=== PATIENT | male | born 1950 | race Caucasian/White ===

== ENCOUNTER → 2017-11-19 | Outpatient (CLI) | payer MEDICARE ==
--- NOTE | 2017-11-19 10:04 | CTL ---
EXAMINATION TYPE: CT Low Dose Lung DATE OF EXAM ORDERED: 11/19/2017 HISTORY: Long-term tobacco use. Lung cancer screening CT DLP: [address] CTDI: 2.83 mGy Automated exposure control for dose reduction was used. SCREENING VISIT: Initial study COMPARISON: None TECHNIQUE: Low dose computed tomography scan was performed through the chest at 1 mm thick sections a nd reconstructed images in the coronal plane at [address] DIAGNOSTIC QUALITY: Satisfactory FINDINGS: LUNG NODULES: None. LUNGS: COPD: Severity: None Fibrosis: Severity: Minimal right basilar linear fibrosis anteriorly. Lymph nodes: No suspicious lymph nodes Other findings: No suspicious findings BILATERAL PLEURAL SPACE: Effusion: None Calcification: None Thickening: None Pneumothorax: None HEART: Heart Size: Normal Coronary calcification: None Pericardial effusion: none OTHER FINDINGS: Upper abdomen: None Bony thorax: Mild multilevel spurring mid to lower thoracic spine Supraclavicular region: None Other: None IMPRESSION: No suspicious nodules or masses. FOLLOW UP CT CHEST RECOMMENDATION: Annual low-dose lung screening CT CT LUNG RAD: Lung-Rad 1 Negative
== END | disposition home or self-care (01) ==
LOC: RADCTMAIN 08:21
PROVIDERS: ATTEND Internal Medicine
DX: Z12.2 Encounter for screening for malignant neoplasm of respiratory organs (principal); Z87.891 Personal history of nicotine dependence

== ENCOUNTER → 2020-10-05 | Outpatient (CLI) | payer MEDICARE ==
--- NOTE | 2020-10-05 07:43 | US ---
EXAMINATION TYPE: US abdomen complete DATE OF EXAM: 10/05/2020 COMPARISON: NONE CLINICAL HISTORY: Z13.6 Cardiovascular Disorder. elevated liver enzymes EXAM MEASUREMENTS: Liver Length: 16.5 cm Gallbladder Wall: 0.2 cm CBD: 0.7 cm Spleen: 10.3 cm Right Kidney: 12.5 x 5.6 x 5.4 cm Left Kidney: 11.5 x 4.7 x 6.1 cm Pancreas: wnl Liver: intercostal, difficult to image Gallbladder: wnl Evidence for sonographic Blood's sign: no CBD: wnl Spleen: wnl Right Kidney: wnl Left Kidney: wnl Upper IVC: wnl Abd Aorta: wnl The visualized liver is heterogeneously hyperechoic. No surrounding ascites. Evaluation for focal mas ses suboptimal due to the heterogeneity. No ductal dilatation. The intrahepatic portion of the IVC an d visualized abdominal aorta are within normal limits. There is no evidence of cholelithiasis. Comm on bile duct is unremarkable. The visualized portions of the pancreas are homogenous. The spleen is unremarkable. Kidneys are symmetric and free of hydronephrosis. No renal lesions are seen. IMPRESSION: Heterogeneous hyperechoic appearance of liver could be on basis of diffuse fatty infiltra tion and/or underlying hepatocellular disease. Patient may benefit with random tissue sampling or ult rasound elastography to further evaluate.
== END | disposition home or self-care (01) ==
LOC: RADUSWWP 07:06
PROVIDERS: ATTEND Internal Medicine
DX: R93.2 Abnormal findings on diagnostic imaging of liver and biliary tract (principal)
CPT/HCPCS: 76700

== ENCOUNTER 2021-03-21 09:40 | Day surgery (SDC) | payer MEDICARE ==
[2021-03-21] MEDS ORDERED: LIDOCAINE 1% (10MG/ML) FOR IV START INTRADERMA PRN (10:02)
[2021-03-21] MEDS ORDERED: LACTATED RINGERS 1,000 ML IV SCH (10:02)
[2021-03-21 10:06] VITALS: TEMP 97.8
[2021-03-21] MEDS ORDERED: PROPOFOL 10 MG/ML 20 ML VIAL IV ONE (10:50)
--- NOTE | 2021-03-21 11:15 | P.PCN ---
Date of Procedure: 03/21/21 Procedure(s) Performed: BRIEF HISTORY: Patient is a 71-year-old pleasant white male scheduled for an elective colonoscopy as a part of screening for colorectal neoplasia and family history of colon cancer diagnosed in his mother in her 70s. PROCEDURE PERFORMED: Colonoscopy snare polypectomy. PREOPERATIVE DIAGNOSIS: Screening for colon cancer/family history of colon cancer. IV sedation per Anesthesia. PROCEDURE: After informed consent was obtained, the patient, was brought into the endoscopy unit. IV sedation was administered by Anesthesia under continuous monitoring. Digital rectal examination was normal. Initially the Olympus CF-160 flexible video colonoscope was then inserted in the rectum, gradually advanced into the cecum without any difficulty. Careful examination was performed as the scope was gradually being withdrawn. Ileocecal valve and the appendiceal orifice were visualized and appeared normal. Prep was excellent. Mucosa of the cecum, appeared normal. There was a 5 mm polyp in the base of the cecum was removed by snare polypectomy. In the ascending colon there was another 5 mm polyp removed by snare polypectomy. Rest of the ascending colon, transverse colon, descending colon, sigmoid colon, and rectum appeared normal. Scattered sigmoid diverticulosis. Retroflexion was performed in the rectum and grade 2 internal hemorrhoids. were seen. The patient tolerated the procedure well. IMPRESSION: 5 mm cecal polyp status post removal by snare polypectomy 5 mm ascending colon polyp status post polypectomy Scattered sigmoid diverticulosis Grade 2 internal hemorrhoids RECOMMENDATIONS: Findings of this examination were discussed with the patient as well as his family. He was advised to follow with the biopsy results. If the biopsy reveals adenoma he can have a repeat colonoscopy in 5 years.
[2021-03-21 11:18] VITALS: BP 128/76; PULSE 81; RESP 16
== END 2021-03-21 11:52 | disposition home or self-care (01) ==
LOC: ORWHC2ENDO 09:40
PROVIDERS: ATTEND Internal Medicine Gastroenterology
DX: Z12.11 Encounter for screening for malignant neoplasm of colon (principal); D12.0 Benign neoplasm of cecum; D12.2 Benign neoplasm of ascending colon; K57.30 Diverticulosis of large intestine without perforation or abscess without bleeding; K64.1 Second degree hemorrhoids; Z80.0 Family history of malignant neoplasm of digestive organs; E78.5 Hyperlipidemia, unspecified; Z79.82 Long term (current) use of aspirin; Z79.899 Other long term (current) drug therapy; Z88.0 Allergy status to penicillin
CPT/HCPCS: 88305; 45385; J2704

== ENCOUNTER → 2021-03-26 | Outpatient (CLI) | payer MEDICARE ==
[2021-03-16 11:14] VITALS: BMI 27.3
--- NOTE | 2021-03-26 11:26 | CTL ---
EXAMINATION TYPE: CT Low Dose Lung DATE OF EXAM ORDERED: 03/26/2021 HISTORY: nursing home tobacco use. Lung cancer screening CT DLP: 136.[address] CTDI: 3.3 mGy Automated exposure control for dose reduction was used. SCREENING VISIT: First after baseline COMPARISON: Low-dose lung screening CT November 19, 2017 TECHNIQUE: Low dose computed tomography scan was performed through the chest at 1 mm thick sections a nd reconstructed images in the coronal plane at [address] DIAGNOSTIC QUALITY: Satisfactory FINDINGS: LUNG NODULES: None. Stable 5 mm calcified left lower lobe nodule or granuloma axial image 205. LUNGS: COPD: Severity: None Fibrosis: Severity: None Lymph nodes: No new greater than 1 cm Other findings: None RIGHT PLEURAL SPACE: Effusion: None Calcification: None Thickening: None Pneumothorax: None LEFT PLEURAL SPACE: Effusion: None Calcification: None Thickening: None Pneumothorax: None HEART: Heart Size: Normal Coronary calcification: None Pericardial effusion: None OTHER FINDINGS: Upper abdomen: None Bony thorax: None Supraclavicular region: None Other: Calcified subcentimeter left hilar lymph nodes or granulomas. IMPRESSION: No suspicious new noncalcified nodules. CT LUNG RAD AND CT CHEST RECOMMENDATION: Lung-Rad 1 Negative: Continue annual screening with LDCT in 12 months. S Modifier (other clinically significant findings): None
== END | disposition home or self-care (01) ==
LOC: RADCTMAIN 10:48
PROVIDERS: ATTEND Internal Medicine
DX: Z12.2 Encounter for screening for malignant neoplasm of respiratory organs (principal); Z87.891 Personal history of nicotine dependence
CPT/HCPCS: 71271

== ENCOUNTER → 2022-05-02 | Outpatient (CLI) | payer MEDICARE ==
--- NOTE | 2022-05-02 10:29 | CTL ---
EXAMINATION TYPE: CT Low Dose Lung DATE OF EXAM ORDERED: 05/02/2022 HISTORY: History of tobacco use. Lung cancer screening CT DLP: 170.[address] CTDI: 3.6 mGy Automated exposure control for dose reduction was used. SCREENING VISIT: Follow-up COMPARISON: 03/26/2021, 11/19/2017. TECHNIQUE: Low dose computed tomography scan was performed through the chest at 1 mm thick sections a nd reconstructed images in multiple planes at 1 mm and [address] DIAGNOSTIC QUALITY: Satisfactory FINDINGS: LUNG NODULES: Stable 5 mm calcified granuloma (series 4, image 175). Stable left lower lobe 4 mm pulm onary nodule (series 4, image 160). No new or enlarging pulmonary nodules. LUNGS: COPD: Severity: None Fibrosis: Severity: None Lymph nodes: Calcified subcentimeter left hilar lymph nodes redemonstrated. Other findings: None RIGHT PLEURAL SPACE: Effusion: None Calcification: None Thickening: None Pneumothorax: None LEFT PLEURAL SPACE: Effusion: None Calcification: None Thickening: None Pneumothorax: None HEART: Heart Size: Normal Coronary Calcification: None Pericardial Effusion: None OTHER FINDINGS: Upper abdomen: None Bony thorax: None Supraclavicular region: None Other: None IMPRESSION: Stable 4 mm left lower lobe pulmonary nodule. No new or enlarging pulmonary nodules. CT LUNG RAD AND CT CHEST RECOMMENDATION: Lung-Rad 2 Benign Appearance or Behavior: Continue annual sc reening with LDCT in 12 months. S Modifier (other clinically significant findings): None
== END | disposition home or self-care (01) ==
LOC: RADCTMAIN 09:37
PROVIDERS: ATTEND Internal Medicine
DX: Z12.2 Encounter for screening for malignant neoplasm of respiratory organs (principal); R91.1 Solitary pulmonary nodule; Z87.891 Personal history of nicotine dependence
CPT/HCPCS: 71271

== ENCOUNTER → 2022-08-26 | Outpatient (CLI) | payer MEDICARE ==
--- NOTE | 2022-08-26 10:36 | US ---
EXAMINATION TYPE: US duplex aorta DATE OF EXAM: 08/26/2022 COMPARISON: Abdominal ultrasound 10/05/2020. CLINICAL HISTORY: Z13.6 screening. AAA screening TECHNIQUE: Multiple sonographic images of the abdominal aorta are obtained. FINDINGS: EXAM MEASUREMENTS: Abdominal Aorta: Proximal: 2.3 x 2.1 cm Mid: 1.6 x 1.6 cm Distal: 1.8 x 1.8 cm Bifurcation: PETAR: 1.1 x 1.0 cm BHAVESH: 1.2 x 1.0 cm SALES REPRESENTATIVE METALS NOTES: No evidence of AAA IMPRESSION: No ultrasound evidence for abdominal aortic aneurysm.
== END | disposition home or self-care (01) ==
LOC: RADUSWWP 08:56
PROVIDERS: ATTEND Internal Medicine
DX: Z13.6 Encounter for screening for cardiovascular disorders (principal)
CPT/HCPCS: 93979

== ENCOUNTER → 2023-03-18 | Outpatient (CLI) | payer MEDICARE ==
--- NOTE | 2023-03-19 08:46 | US ---
EXAMINATION TYPE: US kidneys/renal and bladder DATE OF EXAM: 03/18/2023 COMPARISON: NONE CLINICAL INDICATION: Male, 73 years old with history of N18.31 CHRONIC KIDNEY DISEASE, STAGE 3A; CKD EXAM MEASUREMENTS: Right Kidney: 12.6x5.3x6.3 cm Left Kidney: 12.2x5.8x5.0 cm Right Kidney: No hydronephrosis or masses seen Left Kidney: No hydronephrosis or masses seen Bladder: Nondistention of the bladder limits its evaluation. Bilateral Jets seen: Yes IMPRESSION: No hydronephrosis.
== END | disposition home or self-care (01) ==
LOC: RADUSWWP 15:34
PROVIDERS: ATTEND Internal Medicine
DX: N18.31 Chronic kidney disease, stage 3a (principal)
CPT/HCPCS: 76770

== ENCOUNTER → 2023-05-03 | Outpatient (CLI) | payer MEDICARE ==
--- NOTE | 2023-05-03 10:16 | CTL ---
EXAMINATION TYPE: CT Low Dose Lung DATE OF EXAM: 05/03/2023 8:23 AM CLINICAL INDICATION:Male, 73 years old with history of Z87.891; Personal history ot tobacco use/perso nal history of nicotine dependence , history of tobacco use. COMPARISON: CTs most recent 05/10/2022 TECHNIQUE: Multiple axial non-contrast scans were obtained from approximately the lung apices through the upper abdomen. Coronal and sagittal reformatted images were obtained. Low dose technique was uti lized. CT DLP: 160.90 mGycm, Automated exposure control for dose reduction was used. CT Contrast: Contrast used: None Oral contrast used: None FINDINGS: ======== Lack of intravenous contrast and low dose technique limits the evaluation of the vascular and soft ti ssue structures. LUNGS: No evidence of pulmonary fibrosis. No evidence of focal consolidation, pneumothorax or pleural effusion. Mild emphysema changes are seen throughout the lungs. Some atelectasis in the right middle lobe anteriorly. Nodules: RUL: None. RML: None. RLL: None. GARO: 2 mm nodule series 3 image 206, stable. LLL: Calcified granuloma. Pulmonary nodule measuring 4 mm series 3 image 192, stable. AIRWAY: Patent and unremarkable. HEART: Size within normal limits. MEDIASTINUM: No gross evidence of adenopathy. VASCULATURE: No aortic aneurysm. MUSCULOSKELETAL: No acute osseous abnormalities SOFT TISSUES/LYMPH NODES: Unremarkable. LOWER NECK: No significant findings. UPPER ABDOMEN: Diffuse low-attenuation to the liver parenchyma.77 IMPRESSION: 1. No clinically significant pulmonary nodules. 2. Mild emphysema changes. CT LUNG RAD AND CT CHEST RECOMMENDATION: Lung-Rad 2 Benign Appearance or Behavior: Continue annual sc reening with LDCT in 12 months. S Modifier (other clinically significant findings): None Recommend smoking cessation (if current smoker), or continuation of smoking cessation (if prior smoke r). Annual screening for lung cancer with low-dose computed tomography is recommended in adults ages 55 to 77 years who have a 30 pack-year smoking history and currently smoke or have quit within the pa st 15 years. Screening should be discontinued once a person has not smoked for 15 years or develops a health problem that substantially limits life expectancy or the ability or willingness to have curat yunior lung surgery. Lung rads 2021 [email or web address]
== END | disposition home or self-care (01) ==
LOC: RADCTMAIN 07:48
PROVIDERS: ATTEND Internal Medicine
DX: Z12.2 Encounter for screening for malignant neoplasm of respiratory organs (principal); J43.9 Emphysema, unspecified; Z87.891 Personal history of nicotine dependence
CPT/HCPCS: 71271

== ENCOUNTER → 2023-09-30 | Outpatient (CLI) | payer MEDICARE ==
--- NOTE | 2023-10-01 09:48 | CA ---
Stress Echo Report [place] Age: 73 Gender: M : 1950 Exam Date: 09/30/2023 11:20 Exam Location: [facility] Ht (in): 76 Wt (lb): 230 Ordering Physician: Scooter Larkin MD Referring Physician: Scooter Larkin MD Patternmaker Sample: Joana Morrison RDCS Technologist Procedure CPT: Indication: R07.89 Atypical Chest Pain ICD-9 Codes: Rhythm: Patient History: CP, NUMBNESS FACE/NECK, TOB Cardiac Medications: ATORVASTATIN AND ASPIRIN Medications in past 24 hours: Contrast: Stress Results Protocol: Ta Total dose(mL): Exercise Duration (min:sec): 6:[address] Depression (mm): Angina Score: Turner Score: METS: 8.1 Resting HR: 80 Resting BP: 139 / 71 Peak HR: 131 Peak BP: 195 / 74 Max Predicted HR: 145 90 % Max Predicted HR Target HR: 123 Double Product: 58221 Stress Summary: BP Response: Reason for Termination: Reached target heart rate or work-load Cardiac Symptoms: patient did not report any symptoms of chest pain or pressure with exercise ECG Analysis Resting ECG: Normal sinus rhythm, incomplete right bundle, LVH with mild resting repolarization abnormality Stress ECG: There is [address] depressions in inferolateral leads. These ST changes persisted up to 5 minutes in recovery. Arrhythmia: No ectopic beats or sustained arrhythmias Echo Analysis Resting Echo: Severe concentric LVH, wall thickness approximately 1.8 cm. Normal global and segmental wall motion. No obvious regional wall motion abnormality Peak Echo Analysis: Normal augmentation of systolic function of all myocardial segments. There is no stress-induced regional wall motion abnormality MEASUREMENTS (Male/Female) Normal Values CONCLUSIONS Severe LVH Nonischemic echocardiographic response to exercise Abnormal ECG response to exercise, most likely related to concentric LVH Fair exercise tolerance for patient's age achieving 8.1 METS Normal echocardiographic stress test. Abnormal ECG response most likely LVH related. Clinical correlation warranted. If patient has significant ischemic symptoms he will need further cardiac evaluation. Should be treated for severe LVH Dr Derrick Quiñones (Electronically Signed) Final Date: 01 October 2023 09:47
== END | disposition home or self-care (01) ==
LOC: RADNMMAIN 09:49
PROVIDERS: ATTEND Internal Medicine
DX: R07.89 Other chest pain (principal); R94.31 Abnormal electrocardiogram [ECG] [EKG]
CPT/HCPCS: 93351

== ENCOUNTER → 2024-05-12 | Outpatient (CLI) | payer MEDICARE ==
--- NOTE | 2024-05-12 10:31 | CTL ---
EXAMINATION TYPE: CT Low Dose Lung DATE OF EXAM ORDERED: 05/12/2024 HISTORY: 40 pack-year history, quit smoking in 2009. Lung cancer screening CT DLP: 165.[address] CTDI: 3.9 mGy Automated exposure control for dose reduction was used. SCREENING VISIT: Follow-up COMPARISON: CT Low Dose Lung 05/03/2023, 05/10/2022, 03/26/2021, 11/19/2017. TECHNIQUE: Low dose computed tomography scan was performed through the chest at 1 mm thick sections a nd reconstructed images in multiple planes at 1 mm and [address] DIAGNOSTIC QUALITY: Satisfactory FINDINGS: LUNG NODULES: Stable scattered calcified granulomas. Stable left lower lobe 4 mm pulmonary nodule (se honey 4, image 193). No new or enlarging pulmonary nodules. LUNGS: COPD: Severity: None Fibrosis: Severity: None Lymph nodes: Calcified subcentimeter left hilar lymph nodes redemonstrated. Other findings: Right middle lobe scarring is demonstrated. RIGHT PLEURAL SPACE: Effusion: None Calcification: None Thickening: None Pneumothorax: None LEFT PLEURAL SPACE: Effusion: None Calcification: None Thickening: None Pneumothorax: None HEART: Heart Size: Normal Coronary Calcification: None Pericardial Effusion: None OTHER FINDINGS: Upper abdomen: None Bony thorax: None Supraclavicular region: None Other: None IMPRESSION: 1. Stable 4 mm left lower lobe pulmonary nodule. No new or enlarging pulmonary nodules. 2. Sequelae of prior granulomatous disease. CT LUNG RAD AND CT CHEST RECOMMENDATION: Lung-Rad 2 Benign Appearance or Behavior: Continue annual sc reening with LDCT in 12 months. S Modifier (other clinically significant findings): None
== END | disposition home or self-care (01) ==
LOC: RADCTMAIN 09:18
PROVIDERS: ATTEND Internal Medicine
DX: Z12.2 Encounter for screening for malignant neoplasm of respiratory organs (principal); R91.1 Solitary pulmonary nodule; Z87.891 Personal history of nicotine dependence
CPT/HCPCS: 71271

== ENCOUNTER → 2025-04-07 | Outpatient (CLI) | payer MEDICARE ==
--- NOTE | 2025-04-07 12:40 | US ---
EXAMINATION TYPE: US thyroid st tissue head/neck DATE OF EXAM: 04/07/2025 COMPARISON: NONE CLINICAL INDICATION: Male, 75 years old with history of R79.89 OTHER SPECIFIED ABNORMAL FINDINGS OF B LOOD; low PTH TECHNIQUE: Grayscale and color Doppler imaging of the thyroid gland. FINDINGS: GLAND SIZE: Right Lobe: 5.4 x 2.9 x 1.9 cm Overall Parenchyma: homogeneous Left Lobe: 5.3 x 1.7 x 1.4 cm Overall Parenchyma: homogeneous Isthmus Thickness: 0.52 cm NODULES RIGHT: # of nodules measured on right: 0 LEFT: # of nodules measured on left: 0 [Subcentimeter cystic nodule noted within the left lobe) ISTHMUS: # of nodules measured in the isthmus: 0 Bilateral neck scanned, no evidence of lymphadenopathy. IMPRESSION: No evidence for thyroid nodule. TI-RADS assessment score and recommendation for follow-up based on appropriate scoring and treatment protocols. TR1 Benign No FNA TR2 Not suspicious No FNA TR3: If nodule size is ? 2.5 cm, FNA is recommended. If nodule size is ? 1.5 cm, follow-up imaging at 1, 3, and 5 years is recommended. TR4: If nodule size is ? 1.5 cm, FNA is recommended. If nodule size is ? 1.0 cm, follow-up imaging at 1, 2, 3, and 5 years is recommended. TR5: If nodule size is ? 1.0 cm, FNA is recommended. If nodule size is ? 0.5 cm, annual follow-up for up to 5 years is recommended. TR 1 thyroid nodules have a 0.3 % risk of malignancy. TR 2 thyroid nodules have a 1.5 % risk of malignancy. TR 3 thyroid nodules have a 4.8 % risk of malignancy. TR 4 thyroid nodules have a 9.1 % risk of malignancy. TR 5 thyroid nodules have a 35 % risk of malignancy. [email or web address], , 04/07/2025 12:37 PM
== END | disposition home or self-care (01) ==
LOC: RADUSWWP 12:10
PROVIDERS: ATTEND Internal Medicine
DX: R79.89 Other specified abnormal findings of blood chemistry (principal)
CPT/HCPCS: 76536